=== PATIENT | female | born 1970 | race American Indian/Alaskan Native ===

== ENCOUNTER 2024-09-22 23:36 | Emergency (ER) | payer OTHER ==
[~2024-09-22] VITALS: Ht 160 cm; Wt 100.8 kg
[2024-09-23] MEDS ORDERED: AMLODIPINE BESYLATE 10 MG TAB PO ONE (00:15)
[2024-09-23] MEDS ORDERED: METOPROLOL TARTRATE 5 MG/5 ML VIAL IV ONE (00:15)
[2024-09-23 00:19] LABS: BASOPHILS 0.9 % (0-2); EOSINOPHILS 1.5 % (0-6); HEMATOCRIT 44.4 % (35.0-50.0); HEMOGLOBIN 15.7 g/dL (12.0-18.0); LYMPHOCYTES 34.8 % (24-44); MCH 30.5 (27-36); MCHC 35.4 g/dl (30-36); NEUTROPHILS 54.8 % (39-80); PLATELET COUNT 264 K/uL (140-440); RBC 5.16 M/ul (4.3-5.7); RDW 15.4 (10.5-15.0)
[2024-09-23 00:34] LABS: ANION GAP 10.7 (7-21); BILIRUBIN, TOTAL 0.8 mg/dL (0.2-1.0); POTASSIUM 3.7 mmol/L (3.5-5.1); PROTEIN, TOTAL 8.5 g/dL (6.4-8.2)
[2024-09-23 00:40] LABS: ALBUMIN 3.8 g/dL (3.4-5.0); ALBUMIN/GLOBULIN RATIO 0.81 (1.1-2.4); BUN/CREATININE RATIO 13.69 (6.0-28.6); CREATININE, SERUM 0.73 mg/dL (0.55-1.02)
[2024-09-23] MEDS ORDERED: NORVASC10 MG PO (01:15)
[2024-09-23 01:38] LABS: BILIRUBIN, URINE NEGATIVE (negative); BLOOD/HGB, URINE NEGATIVE (Negative); KETONE, URINE NEGATIVE (Negative); LEUK ESTERASE, URINE NEGATIVE (negative); NITRITE, URINE NEGATIVE (negative)
[2024-09-23 01:45] VITALS: BP 158/118
[2024-09-23 02:59] LABS: AMPHETAMINES, UR NEGATIVE (NEGATIVE); BARBITURATES, UR NEGATIVE (NEGATIVE); BENZODIAZEPINES, UR NEGATIVE (NEGATIVE); BUPRENORPHINE,UR NEGATIVE (NEGATIVE); COCAINE, UR NEGATIVE (NEGATIVE); MARIJUANA (THC), UR NEGATIVE (NEGATIVE); MDMA, UR NEGATIVE (NEGATIVE); METHADONE, UR NEGATIVE (NEGATIVE); METHAMPHETAMINE, UR NEGATIVE (NEGATIVE); OPIATES, UR NEGATIVE (NEGATIVE); OXYCODONE, UR NEGATIVE (NEGATIVE); PHENCYCLIDINE, UR NEGATIVE (NEGATIVE); TRICYCLIC ANTIDEPRESSANT, UR NEGATIVE (NEGATIVE)
--- NOTE | 2024-09-24 10:56 | EKG ---
[facility] [address] [facility] [place], [place] [address] Signed Normal sinus rhythm Cannot rule out Anterior infarct , age undetermined Abnormal ECG No previous ECGs available Confirmed by Maty Souza DO ([id number]) on 09/24/2024 10:55:51 AM Electronically Signed By: MATY SOUZA DO 09/24/24 1056 PATIENT NAME: GOGO EPPS Electrocardiogram DATE OF : 72 PHYSICIAN: MATY SOUZA DO REPORT #: [id number] REPORT IS CONFIDENTIAL AND NOT TO BE RELEASED WITHOUT AUTHORIZATION
== END 2024-09-23 01:46 | disposition other institution, planned readmission (95) ==
LOC: ED 23:36
PROVIDERS: Internal Medicine
DX: I16.0 Hypertensive urgency (principal); I10 Essential (primary) hypertension; Z88.8 Allergy status to other drugs, medicaments and biological substances
CPT/HCPCS: 36415; 80053; 80307; 81003; 84484; 85025; 93005; 93010; 96374; 99284-25

== ENCOUNTER 2024-10-01 07:57 | Emergency (ER) | payer OTHER ==
[~2024-10-01] VITALS: Ht 160 cm; Wt 101.8 kg
[~2024-10-01 07:57] MED LIST: NORVASC10 MG PO
--- OUTSIDE RECORDS SUMMARY | 2024-10-01 08:04 | XMS ---
PreManage Notification: GOGO EPPS [employer] Education Consultant Events No recent Security Events currently on file CRITERIA MET - [facility] - 2 Visits in 30 Days CARE PROVIDERS -[facility] Dentist: [employer] [facility] PHONE: [phone] -[place]- Dentist: [employer] [facility] PHONE: [phone] Abran has no Care Guidelines for this patient. EKaden VISIT COUNT (12 MO.) [address] [place] [address] TOTAL 2 NOTE: Visits indicate total known visits. ED/UCC VISIT TRACKING (12 MO.) 10/01/2024 07:[address] [facility] TYPE: Emergency COMPLAINT: - CHEST PAIN 09/22/2024 23:37 [facility] [place] TYPE: Emergency COMPLAINT: - MEDICAL CLEARANCE DIAGNOSES: - Allergy status to other drugs, medicaments and biological substances - Essential (primary) hypertension - Hypertensive urgency INPATIENT VISIT TRACKING (12 MO.) No inpatient visits to display in this time frame [email or web address]
[2024-10-01 08:19] LABS: BASOPHILS 0.6 % (0-2); EOSINOPHILS 1.8 % (0-6); HEMATOCRIT 42.3 % (35.0-50.0); HEMOGLOBIN 14.9 g/dL (12.0-18.0); LYMPHOCYTES 26.1 % (24-44); MCH 30.4 (27-36); MCHC 35.3 g/dl (30-36); MCV 86.3 fl (81-99); MONOCYTES 8.7 % (0-12); NEUTROPHILS 62.8 % (39-80); PLATELET COUNT 230 K/uL (140-440)
[2024-10-01 08:37] LABS: ALBUMIN 3.4 g/dL (3.4-5.0); ALBUMIN/GLOBULIN RATIO 0.81 (1.1-2.4); ANION GAP 10.5 (7-21); BILIRUBIN, TOTAL 0.8 mg/dL (0.2-1.0); BUN/CREATININE RATIO 16.41 (6.0-28.6); CALCIUM 8.8 mg/dL (8.5-10.1); CREATININE, SERUM 0.67 mg/dL (0.55-1.02); POTASSIUM 3.5 mmol/L (3.5-5.1); PROTEIN, TOTAL 7.6 g/dL (6.4-8.2)
[2024-10-01] MEDS ORDERED: KETOROLAC TROMETHAMINE 15 MG/ML VIAL IV ONE (08:45)
[2024-10-01] MEDS ORDERED: cloNIDine HCL 0.1 MG TAB PO ONE (08:45)
[2024-10-01] MEDS ORDERED: AMLOD-VALSA-HC1 EAC1 PO (10:20)
[2024-10-01] MEDS ORDERED: CLONIDINE HCL0.2 MG PO (10:20)
[2024-10-01 10:30] VITALS: BP 160/88
--- NOTE | 2024-10-01 22:19 | EKG ---
[facility] [address] [place] [address] Signed Normal sinus rhythm Inferior infarct , age undetermined Abnormal ECG When compared with ECG of 22-SEP-2024 23:58, No significant change was found Confirmed by Jorge Almaraz MD () on 10/01/2024 10:19:38 PM Electronically Signed By: JORGE ALMARAZ MD 10/01/24 2219 PATIENT NAME: YUE EPPSLINE JONATHAN Electrocardiogram DATE OF : 72 PHYSICIAN: JORGE ALMARAZ MD REPORT #: [id number] REPORT IS CONFIDENTIAL AND NOT TO BE RELEASED WITHOUT AUTHORIZATION
== END 2024-10-01 10:32 | disposition home or self-care (01) ==
LOC: ED 07:57
PROVIDERS: Emergency Medicine
DX: I16.0 Hypertensive urgency (principal); I10 Essential (primary) hypertension; Z79.899 Other long term (current) drug therapy; Z88.8 Allergy status to other drugs, medicaments and biological substances
CPT/HCPCS: 36415; 71045; 80053; 83690; 83735; 84484; 85025; 85379; 93005; 93010; 96374; 99285-25; J1885